=== PATIENT | male | born 1960 | race Caucasian/White ===

== ENCOUNTER 2022-01-06 15:57 | Emergency (ER) | payer OTHER ==
[2022-01-06] MEDS ORDERED: IBU600T PO (20:10)
== END 2022-01-06 21:02 | disposition left against medical advice (07) ==
LOC: EDBD 15:57 → ER 15:57
DX: S09.90XA Unspecified injury of head, initial encounter (principal); M79.10 Myalgia, unspecified site; I10 Essential (primary) hypertension; Z53.29 Procedure and treatment not carried out because of patient's decision for other reasons; W17.89XA Other fall from one level to another, initial encounter; Y93.89 Activity, other specified; Y92.89 Other specified places as the place of occurrence of the external cause; Y99.8 Other external cause status
CPT/HCPCS: 70450; 72125; 72131; 72192